=== PATIENT | male | born 1965 | race Caucasian/White ===

== ENCOUNTER → 2020-08-06 15:13 | Outpatient (CLI) | payer OTHER, SELFPAY ==
--- NOTE | 2020-08-06 15:24 | US_ITS ---
PROCEDURE: US TESTICULAR CLINICAL INDICATION: EPIDIDYMITIS Testicular pain COMPARISON: No exams were available for comparison FINDINGS: The testicles have an unremarkable appearance. No mass evident. There is bilateral testicular blood flow. No hydrocele varicocele or spermatocele. IMPRESSION: Unremarkable testicular ultrasound Dictated by: Aren Case MD 08/06/2020 17:08 Aren Case MD in [place] 08/06/2020 17:08
== END ==
PROVIDERS: PCP Nurse Practitioner Family; Visit Provider Nurse Practitioner Family
DX: N45.1 Epididymitis (principal)
CPT/HCPCS: 76870

== ENCOUNTER → 2020-09-07 11:09 | Outpatient (CLI) | payer OTHER, SELFPAY ==
--- NOTE | 2020-09-07 11:26 | XR_ITS ---
PROCEDURE: XR HIP RT 2-3V W/PELVIS CLINICAL INDICATION: RIGHT HIP PAIN COMPARISON: No exams were available for comparison FINDINGS: No fracture or dislocation is evident. No significant degenerative change. No lytic or blastic change. Unremarkable soft tissues. IMPRESSION: No acute findings. Dictated by: Dr. Cornelio Holguin MD 09/07/2020 12:21 Dr. Cornelio Holguin MD in [place] 09/07/2020 12:21
== END ==
PROVIDERS: PCP Internal Medicine Adolescent Medicine; Referring Provider Internal Medicine Adolescent Medicine; Visit Provider Internal Medicine Adolescent Medicine
DX: M25.551 Pain in right hip (principal)
CPT/HCPCS: 73502

== ENCOUNTER → 2020-09-11 16:51 | Outpatient (CLI) | payer OTHER, SELFPAY ==
[2020-09-11 17:41] LABS: Basophils # 0.1 K/mm3 (0-0.2); Basophils % 0.9 % (0.1-2.0); Eosinophils # 0.2 K/mm3 (0.0-0.4); Eosinophils % 2.7 % (0.1-12.0); Hematocrit 49.6 % (42.0-52.0); Hemoglobin 16.6 g/dL (14.1-18.0); Lymphocytes # 3.1 K/mm3 (0.7-4.5); Lymphocytes % 35.2 % (10-50); Mean Corpuscular HGB Conc 33.4 g/dL (31.8-35.4); Mean Corpuscular Hemoglobin 30.5 pg (27.0-31.2); Mean Corpuscular Volume 91.2 fl (80-94); Mean Platelet Volume 7.8 fl (7.4-10.4); Monocytes # 0.5 K/mm3 (0.1-1.0); Monocytes % 5.6 % (1.7-9.3); Neutrophils # 4.9 K/mm3 (1.8-7.8); Neutrophils % 55.5 % (37.0-80.0); Platelet Count 199 K/mm3 (142-424); Red Blood Count 5.44 M/mm3 (4.60-6.20); Red Cell Distribution Width 13.3 % (11.5-17.5); White Blood Count 8.8 K/mm3 (4.8-10.8)
[2020-09-11 18:33] LABS: Thyroid Stimulating Hormone 0.21 uIU/mL (0.465-4.68)
[2020-09-11 19:18] LABS: Hemoglobin A1C 5.5 % (4.0-6.0)
[2020-09-20 17:02] LABS: Testosterone, Total, LC/MS 282.9 ng/dL (264.0-916.0); Testosterone,Free 5.6 pg/mL (7.2-24.0)
== END ==
PROVIDERS: Visit Provider Internal Medicine Adolescent Medicine
DX: R53.83 Other fatigue (principal)
CPT/HCPCS: 36415; 83036; 84402; 84403; 84443; 85025

== ENCOUNTER → 2020-10-19 11:37 | Outpatient (CLI) | payer OTHER, SELFPAY | PROVIDERS: Visit Provider Internal Medicine Gastroenterology | DX: Z01.812 Encounter for preprocedural laboratory examination (principal); Z11.52 Encounter for screening for COVID-19; Z12.11 Encounter for screening for malignant neoplasm of colon | CPT/HCPCS: U0003 ==

== ENCOUNTER 2020-10-21 10:34 | Day surgery (SDC) | payer OTHER, SELFPAY ==
[2020-10-15 14:46] VITALS: BMI 31.4
[2020-10-21 11:06] VITALS: BP 153/100; PULSE 72; RESP 18; TEMP 36.7; O2SAT 95
--- NOTE | 2020-10-21 11:54 | HMH.ANESCL ---
[facility] Anesthesia Checklist - Patient Identification Patient Identification: Arm Band - Structural Data Admitted From: Home Planned Operative Procedure/s: Colonoscopy Consent for Planned Operative Procedure(s) Verified: Yes - NPO Status Verified Time NPO: 00:00 - Airway Assessment C-Spine Mobility Assessed: Yes TMJ Mobility Assessed: Yes Dentition: Poor Dentition - Neurological Assessment Level of Consciousness: Awake, Alert Hx Seizures: No Numbness or tingling in extremities: No - Anesthesia Plan Anesthesia Risk discussed: Yes Anesthesia Plan: Verified ASA Class: II Anesthesia Type: MAC [facility] History I have reviewed the patient's past medical history: Yes Medical History: Denies:: Cancer, Diabetes Mellitus Type 1, Diabetes Mellitus Type 2, Internal Pacemaker, MRSA, Seizures *Have you ever received a pneumonia vaccine?: No *Have you received a flu vaccine this season?: No Anesthesia experience/problems:: None Other Surgeries: No: Pacemaker Amputation: No Fractures: Yes - *Social History Last grade of school completed: Some college Smoking Status: Current every day smoker Tobacco Type: cigarettes # Packs/Day (cigarettes): 1 Alcohol Intake: current Alcohol Intake Frequency:: a few times a month Substance Use Type: denies use *Occupational Status:: employed Housing: house Household Members: none *Travel in the last 8 weeks: None Family Hx:: Unable to obtain
[2020-10-21 12:09] VITALS: O2SAT 95
--- NOTE | 2020-10-21 12:41 | HMH.PROC ---
[facility] Procedure Note Procedure Note:: Colonoscopy Procedure Report: Colonoscopy with cold snare polypectomy Endoscopist: Camron Hilliard II, MD Referring physician: Jesús Romo MD Date of Procedure: October 21, 2020 Equipment: Olympus 190 variable stiffness pediatric colonoscope Sedation: MAC sedation Indication: Mr. Crowley is a 55-year-old gentleman who is here for follow-up screening/surveillance colonoscopy. He does report having a colonoscopy in [place] 6 years ago. He reports no abdominal pain, weight loss, change in his bowel habits or rectal bleeding. He reports no family history of colon cancer. Procedure: Prior to the procedure, a history and physical exam was performed, and patient's medications and allergies were reviewed. The risks, benefits and alternatives of the sedation and procedure were discussed with the patient. All questions were answered and informed consent was obtained. The patient was brought to the procedure room. Patient identification and proposed procedure were verified by the physician and the nurse. The patient was placed in a left lateral decubitus position and the scope was passed under direct vision. Throughout the procedure, the patient's blood pressure, pulse, and oxygen saturations were monitored continuously. The colonoscopy was accomplished without difficulty. The patient tolerated the procedure well. Findings: On digital rectal examination there was normal rectal tone. There were no external hemorrhoids. The prostate was 2+, smooth, soft, symmetric without nodules. The colonoscope was introduced through the anal canal to the rectum and advanced to the cecum. The ileocecal valve and appendiceal orifice were identified. The scope was advanced a short distance into the ileum which appeared grossly normal. The scope was then withdrawn into the colon. The cecum, ascending and transverse colon were grossly normal. There were 3 colon polyps in the descending colon (3, 5 and 5 mm) which were all removed via cold snare polypectomy. The remainder of the sigmoid and rectum were normal. There were no other mucosal abnormalities identified. Upon retroflexion within the rectum there were grade 1 internal hemorrhoids.The preparation was excellent throughout with Sturgeon Preparation Score of 9. The cecal time was 12 minutes. Impression: 1. Colonic polyps x3 2. Grade 1 internal hemorrhoids Plan: I will follow up the polyp pathology and recommend repeat colonoscopy again in 5 years based upon the polyp histology. I would encourage bulking fiber supplementation on a long-term daily maintenance basis.
[2020-10-21 12:45] VITALS: BP 93/64; PULSE 78; RESP 18; TEMP 36.1; O2SAT 94
[2020-10-21 12:55] VITALS: BP 104/69; PULSE 60; RESP 16; O2SAT 100
[2020-10-21 13:05] VITALS: BP 117/76; PULSE 64; RESP 16; O2SAT 97
[2020-10-21 13:15] VITALS: BP 116/75; PULSE 76; RESP 16; TEMP 36.1; O2SAT 98
== END 2020-10-21 13:15 | disposition home or self-care (01) ==
PROVIDERS: PCP Internal Medicine Adolescent Medicine; Visit Provider Internal Medicine Gastroenterology
PROC: 0DJD8ZZ Inspection of Lower Intestinal Tract, Via Natural or Artificial Opening Endoscopic (ICD-10-PCS; CPT 45378; principal; 2020-10-21 11:30)
DX: Z12.11 Encounter for screening for malignant neoplasm of colon (principal); K63.5 Polyp of colon; K64.0 First degree hemorrhoids; Z72.0 Tobacco use; Z79.899 Other long term (current) drug therapy
CPT/HCPCS: 45385

== ENCOUNTER 2024-11-15 06:48 | Emergency (ER) | payer BC, SELFPAY ==
[2024-11-15 07:02] VITALS: BP 132/75; PULSE 53; RESP 16; TEMP 36.6; O2SAT 99; BMI 25.9
--- NOTE | 2024-11-15 07:11 | XR_ITS ---
FINAL REPORT CLINICAL HISTORY: L shoulder pain rad down arm FINDINGS: PA and lateral views of the chest are obtained. There is no prior exam for comparison. The cardiac and mediastinal silhouettes are within normal limits. The lungs are clear. There is no pleural effusion, pneumothorax, or acute osseous abnormality. IMPRESSION: No radiographic evidence of acute cardiac or pulmonary disease. Reviewed, Interpreted and Dictated by Tanya Arevalo MD Transcribed by Tessa Benavidez Authenticated and [facility]
--- NOTE | 2024-11-15 07:11 | XR_ITS ---
FINAL REPORT CLINICAL HISTORY: L shoulder pain rad down arm FINDINGS: 3 views of the left shoulder were obtained. There is no prior exam for comparison. There is no fracture or dislocation. The joint space is preserved. Soft tissues are unremarkable. IMPRESSION: No acute osseous abnormality of the left shoulder. Reviewed, Interpreted and Dictated by Tanya Arevalo MD Transcribed by Tessa Benavidez Authenticated and [facility]
--- NOTE | 2024-11-15 07:12 | ED_ITS ---
Discharge Plan Disposition Patient Disposition: Home, Self-Care Condition: Good Prescriptions Prescriptions: New methocarbamol 750 mg tablet 750 mg PO Q8H PRN (Reason: pain) Qty: 20 0RF No Action valacyclovir 1 gram tablet 1,000 mg PO Q8H 7 Days Qty: 21 2RF ibuprofen 600 mg tablet 600 mg PO Q8H PRN (Reason: pain) Qty: 20 0RF Referrals Follow up/Referrals: Avelino Alberts MD [Primary Care Provider, Internal Medicine] - See instructions Activity Restrictions/Add. Instructions Additional Instructions/Restrictions: You were evaluated in the emergency department today. As we discussed, we feel your pain is likely musculoskeletal. Please cigar packer and picker your prescription for muscle relaxer and take in addition to Tylenol and ibuprofen as needed for pain. Follow-up closely with your primary care provider for reassessment. Return to the emergency department for new or worsening symptoms. Clinical Impressions Clinical Impression: Acute pain of left shoulder Stand Alone Forms Stand Alone Forms: Work/School Release Instructions Patient Instructions: DI for Acute Pain -- Adult, DI for Shoulder Pain Print Language Print Language: Icelandic Discharge ED Provider: Alanis Harvey General Adult HPI General Chief complaint: PAIN Stated complaint: L shoulder, arm pain, shooting pain when coughing Time Seen by Provider: 11/15/24 07:02 Mode of Arrival: Ambulatory Source of Information: Patient Description of Symptoms (Recalled from ER Triage Doc. by RN): Pt presents to ED for L arm/shoulder pain. NKI. Pt states this pain X 3 days. He got on google and decided he should come to ED. Pt is A&O*4 at this time. Pt states he doesn't have pain rn however pain can be 5/10 at times. History of Present Illness HPI narrative: This patient is a 59-year-old male who denies personal significant past medical history presented to the emergency department for evaluation with concern for left shoulder pain radiating down his left arm. This has been going on for 3 days. No known injuries or falls. He notes that it is worse whenever he coughs. He states that he thinks is just a pulled muscle, but he has extensive family cardiac history and was reading that left arm pain can be a sign of heart disease, so he decided to come in for evaluation. Symptoms were initially relieved with ibuprofen but did get worse today. No chest pain, shortness of breath, back pain, numbness, tingling, neck pain, or other concerns. Related Data Previous Rx's ?Medication ?Instructions ?Recorded valacyclovir 1 gram tablet 1,000 mg PO Q8H 7 days #21 tabs 08/02/24 ibuprofen 600 mg tablet 600 mg PO Q8H PRN pain #20 t abs 08/07/24 methocarbamol 750 mg tablet 750 mg PO Q8H PRN pain #20 tabs 11/15/24 Allergies Allergy/AdvReac Type Severity Reaction Status Date / Time No Known Allergies Allergy Verified 08/07/24 13:09 [facility] Disclaimer: The information contained in this section may have been updated after the patient was seen, as this information can be updated by other users. Medical History Shingles High cholesterol Social History Smoking Status: Current every day smoker tobacco type: cigarettes packs per day: 1 alcohol intake: current alcohol intake frequency: a few times a month substance use type: denies use current occupational status: employed Travel in the last 8 weeks?: None household members: none housing: house current occupation: intermodal truck driver caffeine: Yes Have you lived/traveled outside [place] in past 30 days?: No Contact w/someone who lives/traveled outside US past 30 days?: No Exposure to someone with infectious disease in past 14 days?: No Do you have a fever (greater than 100.4 F or 38 C)?: No Have you tested positive for COVID-19?: No Exposed to someone with COVID-19 in past 14 days?: No Do you have a sore throat?: No Do you have a cough?: No Do you have any weakness?: No Do you have any diarrhea?: No Are you experiencing any unusual bleeding?: No Do you have any muscle aches/pain?: No Do you have any abdominal pain?: No Are you experiencing loss of taste or smell?: No Other Medical History Have you received the Flu Vaccine for this season: No Have you received the Pneumonia Vaccine: No ROS Obtained: Yes All systems reviewed & no additional complaints except as documented Physical Exam General General appearance: alert and in no apparent distress Head Head exam: atraumatic and normocephalic Eye Eye exam: Present normal appearance, PERRL and EOMI ENT ENT exam: Present normal exam, normal oropharynx, mucous membranes moist and normal external ear exam Neck Neck exam: Present normal inspection, full ROM and trachea midline; Absent tenderness Chest Chest inspection: Present normal inspection and symmetric chest wall rise; Absent tenderness Respiratory Respiratory exam: Present normal lung sounds bilaterally; Absent respiratory distress, wheezes, stridor or accessory muscle use Cardiovascular Cardiovascular exam: Present regular rate and normal rhythm Abdominal Exam Abdominal exam: Present soft; Absent distention, tenderness or guarding Extremities Exam Extremities exam: Present normal inspection, full ROM and normal capillary refill; Absent tenderness or edema Back Exam Back exam: Present normal inspection and full ROM; Absent tenderness Neurological Exam Neurological exam: Present alert, oriented X3, CN II-XII intact and normal gait; Absent motor sensory deficit Psychiatric Psychiatric exam: Present normal affect and normal mood Skin Skin exam: Present warm and dry Medical Decision Making Medical Records Medical records reviewed: Yes I reviewed the patient's medical records. Screening: Per USPSTF and CDC recommendations, given the prevalence of disease in our region, it is our hospital?s policy to screen for HIV and viral Hepatitis for all patients aged 18 and over and those with ongoing risk factors. [place] Inquiry Pt receiving controlled substance: No Vital Signs: 11/15/24 07:02 11/15/24 07:30 11/15/24 08:00 Temperature 97.9 F Temperature Source Oral Pulse Rate 54 L 51 L Pulse Rate [Left] 53 L Respiratory Rate 16 18 18 Blood Pressure 125/83 113/74 Blood Pressure [Right Arm] 132/75 Blood Pressure Mean 97 87 Blood Pressure Mean [Right Arm] 94 02 Sat by Pulse Oximetry 99 95 96 Oxygen Delivery Method Room Air 11/15/24 08:30 11/15/24 09:00 11/15/24 09:02 Temperature 98.2 F Temperature Source Pulse Rate 49 L 47 L 48 L Pulse Rate [Left] Respiratory Rate 18 20 Blood Pressure 106/74 L 113/77 133/77 Blood Pressure [Right Arm] Blood Pressure Mean 90 Blood Pressure Mean [Right Arm] 02 Sat by Pulse Oximetry 95 95 Oxygen Delivery Method Room Air Room Air Lab Data Lab results reviewed: Yes I reviewed the patient's lab results. Lab Results 11/15/24 07:39: WBC 6.6, RBC 5.21, Hgb 16.2, Hct 47.0, MCV 90.2, MCH 31.1, MCHC 34.5, RDW 12.4, Plt Count 183, MPV 9.9, Neut % (Auto) 51.5, Lymph % (Auto) 32.6, [place] % (Auto) 11.6 H, Eos % (Auto) 2.9, Baso % (Auto) 0.9, Neut # (Auto) 3.4, Lymph # (Auto) 2.1, [place] # (Auto) 0.8, Eos # (Auto) 0.2, Baso # (Auto) 0.1, Sodium 138, Potassium 4.3, Chloride 107, Carbon Dioxide 27, Anion Gap 8.3, BUN 24 H, Creatinine 1.00, Estimated Creat Clear 103, Estimated GFR 77, Est GFR ( Amer) 93, Glucose 92, Calcium 8.9, Total Bilirubin 0.5, AST 30, ALT 19, Alkaline Phosphatase 72, Troponin I < 0.01, Total Protein 7.0, Albumin 4.2, Globulin 2.8, Albumin/Globulin Ratio 1.5 11/15/24 07:39 11/15/24 07:39 Orders (Tests/Meds): ED MEDICATIONS Discontinued Medications Generic Name Dose Route Start Last Admin Trade Name Freq PRN Reason Stop Dose Admin Ketorolac Tromethamine 15 mg 11/15/24 07:11 11/15/24 07:43 Ketorolac 30mg/Ml Vial IV 11/15/24 07:12 15 mg ONCE ONE Administration Lidocaine 1 each 11/15/24 07:11 11/15/24 07:44 Lidocaine 5% Transdermal Patch TD 11/15/24 07:12 1 each ONCE ONE Administration Methocarbamol 500 mg 11/15/24 07:17 11/15/24 07:43 Methocarbamol 500mg Tablet PO 11/15/24 07:18 500 mg ONCE ONE Administration ORDERS Category Date Time Status CXR 2 view (NOT portable) [XR chest 2V] Stat Exams 11/15/24 07:11 Completed Shoulder XR left minimum 2 views [XR shoulder LT min 2V Exams 11/15/24 07:11 Completed ] Stat Complete Blood Count Auto Diff Stat Lab 11/15/24 07:39 Completed Comprehensive Metabolic Panel Stat Lab 11/15/24 07:39 Completed Trop I [Troponin I] Stat Lab 11/15/24 07:39 Completed Troponin I Q3H Lab 11/15/24 10:15 Ordered Troponin I Q3H Lab 11/15/24 13:15 Ordered ECG Data Tracing #1: I reviewed this ECG and interpreted as documented below: Sinus bradycardia with a ventricular to 47 bpm. Incomplete right bundle branch block. No acute ST changes concerning for ischemia ECG initial impression date: 11/15/24 ECG initial impression time: 07:28 HEART Score History (anamnesis): Slightly suspicious ECG: Normal Age: 45-65 years Risk factors: No known risk factors Troponin: </= normal limit HEART Score: 1 Medical Decision Narrative: In summary, this patient is a 59-year-old male presenting to the Emergency Department for evaluation of left shoulder pain going down his arm. Differential diagnoses considered include but are not limited to musculoskeletal strain/sprain, cervical radiculopathy, brachial radiculopathy, ACS. Ruling out the most morbid conditions drove assessment. On exam, the patient is sitting upright in no acute distress with normal vitals on cardiac telemetry. Cardiopulmonary exam is reassuring with no murmurs or adventitious lung sounds noted. He has 2+ pulses that are equal bilaterally. He is neurologically intact in his bilateral upper extremities as well. He is not currently experiencing pain right now. Workup included CBC, CMP, troponin, chest x-ray, left shoulder x-ray, EKG. He was given IV Toradol, oral Robaxin and topical Lidoderm patch for symptomatic improvement. I independently interpreted chest x-ray and shoulder x-ray prior to the radiologist read and noted no fracture, no focal consolidation. Please see their read for final interpretation. Labs were obtained that demonstrated reassuring CBC with no significant leukocytosis or anemia, reassuring chemistry with no acutely concerning abnormalities. Troponin negative. On reassessment, patient is resting comfortably with normal vitals on cardiac telemetry and has no concerns or complaints. I feel this pain is likely musculoskeletal. I feel is appropriate for discharge home with prescription for Robaxin and instructions for close follow-up with PCP. Strict return precautions given Critical Care Critical Care Time Critical Care Time: No
--- NOTE | 2024-11-15 07:26 | ECG_ITS ---
APPROVED REPORT Exam: Resting ECG HR:47 bpm ECG Measurements Heart Rate 47 AXES OK 180 P 80 QRSd 106 QRS 62 QT 425 T 65 QTc 389 Conclusion SINUS BRADYCARDIA INCOMPLETE RIGHT BUNDLE BRANCH BLOCK [90+ ms QRS DURATION, TERMINAL R IN V1/V2, 40+ ms S IN I/aVL/V4/V5/V6] No STEMI Electronically signed by : LIZZETH TALBOT, 11/15/2024 10:56:36
[2024-11-15 07:30] VITALS: BP 125/83; PULSE 54; RESP 18; O2SAT 95
[2024-11-15] MEDS: KETOROLAC 30MG/ML VIAL 15 MG IV (07:43)
[2024-11-15] MEDS: METHOCARBAMOL 500MG TABLET 500 MG PO (07:43)
[2024-11-15] MEDS: LIDOCAINE 5% TRANSDERMAL PATCH 1 EACH TD (07:44)
[2024-11-15 07:47] LABS: Basophils # 0.1 K/mm3 (0-0.2); Basophils % 0.9 % (0.1-2.0); Eosinophils # 0.2 Kmm3 (0.0-0.4); Eosinophils % 2.9 % (0.1-12.0); Hemoglobin 16.2 g/dL (14.1-18.0); Immature Granulocytes # 0.03 10^3uL; Immature Granulocytes % 0.5 %; Lymphocytes # 2.1 K/mm3 (0.7-4.5); Lymphocytes % 32.6 % (10-50); Mean Corpuscular HGB Conc 34.5 g/dL (31.8-35.4); Mean Corpuscular Hemoglobin 31.1 pg (27.0-31.2); Mean Corpuscular Volume 90.2 fl (80-94); Mean Platelet Volume 9.9 fl (7.4-10.4); Monocytes # 0.8 K/mm3 (0.1-1.0); Monocytes % 11.6 % (1.7-9.3); Neutrophils # 3.4 K/mm3 (1.8-7.8); Neutrophils % 51.5 % (37.0-80.0); Nucleated Red Blood Cells # 0 10^3/uL; Nucleated Red Blood Cells % 0 %; Platelet Count 183 K/mm3 (142-424); Red Blood Count 5.21 M/mm3 (4.60-6.20); Red Cell Distribution Width 12.4 % (11.5-17.5); Red Cell Distribution Width-SD 41.3 fL; White Blood Count 6.6 K/mm3 (4.8-10.8)
[2024-11-15 08:00] VITALS: BP 113/74; PULSE 51; RESP 18; O2SAT 96
[2024-11-15 08:22] LABS: Albumin Level 4.2 g/dl (3.5-5.0); Chloride 107 mmol/L (98-107); Potassium 4.3 mmoL/L (3.5-5.1); Sodium 138 mmol/L (136-145)
[2024-11-15 08:25] LABS: Alanine Aminotransferase 19 U/L (12-78); Albumin/Globulin Ratio 1.5 (1.1-1.8); Alkaline Phosphatase 72 U/L (38-126); Anion Gap 8.3 mEq/L (5-15); Aspartate Amino Transferase 30 U/L (17-59); Bilirubin,Total 0.5 mg/dl (0.2-1.3); Blood Urea Nitrogen 24 mg/dl (9-20); Calcium 8.9 mg/dl (8.4-10.2); Carbon Dioxide 27 mmol/L (22.0-30.0); Creatinine Clearance Estimated 103 mL/min (50-200); Estimated Glomerular Filt Rate 77 ml/min (>60); GFR (African American) 93 ML/MIN (>60); Globulin 2.8 g/dL (1.3-3.2); Glucose 92 mg/dl (74-100)
[2024-11-15 08:30] VITALS: BP 106/74; PULSE 49; O2SAT 95
[2024-11-15 08:37] LABS: Troponin I < 0.01 ng/ml (0.00-0.034)
[2024-11-15 09:00] VITALS: BP 113/77; PULSE 47; RESP 18; O2SAT 95
[2024-11-15 09:02] VITALS: BP 133/77; PULSE 48; RESP 20; TEMP 36.8; O2SAT 96
== END 2024-11-15 09:17 | disposition home or self-care (01) ==
PROVIDERS: Emergency Provider Emergency Medicine; PCP Internal Medicine Adolescent Medicine
DX: M25.512 Pain in left shoulder (principal); R00.1 Bradycardia, unspecified; F17.210 Nicotine dependence, cigarettes, uncomplicated
CPT/HCPCS: 71046; 73030; 80053; 84484; 85025; 93005; 96374; 99284; J1885